=== PATIENT | female | born 1990 | race American Indian/Alaskan Native ===

== ENCOUNTER 2019-04-13 14:07 | Emergency (ER) | payer SELFPAY ==
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
[2019-04-13 16:34] LABS: Bilirubin,Urine NEG (Negative); Blood,Urine NEG (Negative); Color,Urine Yellow (Yellow); Mucus,Urine FEW /HPF; Protein,Urine <15 mg/dL mg/dL (Negative); Urobilinogen,Urine < 2.0 mg/dL (<2.0)
[2019-04-13 16:41] LABS: HCG Qualitative,Urine Negative (Negative)
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
[2019-04-13] MEDS ORDERED: BUTALB/ACETAMINOPHEN/CAFFEINE TAB PO ONE (20:11)
[2019-04-13] MEDS ORDERED: IBUPROFEN 800 MG TAB PO ONE (20:11)
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
[2019-04-13 20:30] VITALS: BP 126/84
== END 2019-04-13 20:34 | disposition home or self-care (01) ==
LOC: ED 14:07
DX: S16.1XXA Strain of muscle, fascia and tendon at neck level, initial encounter (principal); S39.012A Strain of muscle, fascia and tendon of lower back, initial encounter; G44.209 Tension-type headache, unspecified, not intractable; Z90.89 Acquired absence of other organs; F12.10 Cannabis abuse, uncomplicated; Z88.0 Allergy status to penicillin; V49.59XA Passenger injured in collision with other motor vehicles in traffic accident, initial encounter; Y93.89 Activity, other specified; Y92.410 Unspecified street and highway as the place of occurrence of the external cause; Y99.8 Other external cause status
CPT/HCPCS: 72100; 81001; 81025